=== PATIENT | female | born 1995 ===

== ENCOUNTER 2025-06-14 11:26 | Outpatient (AMB) | payer OTHER, SELFPAY ==
--- NOTE | 2025-06-14 11:22 | A.OFFPC_ITS ---
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, hand, shoulders and feet Accompanied by: Self / Same As Patient Allergies No Known Allergies (No Known Allergies*) Allergy (Verified 06/14/25 11:22) Medication List - Last Reconciled 06/14/25 by Fuad Fletcher MD [blood pressure kit As directed] Tobacco use date assessed: 06/14/25 Dental Screening Dental Screen Date: 06/14/25 Did you have a dental visit in the last 12 months?: No Did you have a dental problem in the last 6 months where you did not have access to dental care?: No Was dental information given to patient?: Patient has dentist HPI HPI Comments History of Present Illness Details History of Present Illness The patient is a 30 year old female presenting for establishment of primary care. Elevated Blood Pressure: The patient was found to have a slightly elevated blood pressure and pulse during the visit. She reports that her blood pressure is always high when checked and that this was first noted during her last four years ago. During that , she was prescribed aspirin. She does not own a blood pressure machine for home monitoring. History of Hypermobility: The patient reports a history of a bone-related issue as a child in [place], for which she was evaluated by a genetics specialist. She describes being able to bend her thumb completely backward. The patient does not know the official diagnosis from that time. Contraceptive Management: The patient was previously using an IUD, which she had removed in April. She discontinued it because she was not having her period and wanted to give her body a rest. She is not currently using any form of contraception but does not wish to become . Surgical History: - section (x2) Medications: - The patient is not currently taking an y medications. - She previously took aspirin during a p regnancy. Social History: - Substance Use: Denies smoking, alcohol use, and illicit drug use. - Family Planning: Currently not using c ontraception and does not desire . Family History: - Denies family history of cancer in par ents or siblings. Diagnostic Results: - Vitals: Blood pressure and pulse were noted to be slightly elevated. Past Medical History - History of elevated blood pressure, fi rst noted during 4 years ago. 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 - History of amenorrhea while using a co ntraceptive patch. - Hospitalizations: Admitted for two [facility] sections. Health Maintenance - The patient is establishing primary pr re. - Lab work was ordered for screening, in cluding CBC, metabolic panel, vitamin D, TSH, B12, folate, HIV, hepatitis B/C, syphilis, hemoglobin A1c, and a lipid panel. - Plan to screen for hypertension via tw o weeks of home blood pressure monitoring. [facility] Family History (Updated 06/14/25 @ 11:34 by David Plasencia MA) Mother No problems noted. Father No problems noted. Social History Housing: Condominium Patient Tobacco Use Status: Never used Tobacco service: No Current occupational status: employed Current occupation: SUPERVISOR [employer] Cognitive needs: No Hearing needs: No Vision needs: No Questionnaire PHQ-9 Over the last 2 weeks, how often have you been bothered by any of the following problems? 1. Little interest or pleasure in doing things: not at all 2. Feeling down, depressed, or hopeless: not at all 3. Trouble falling or staying asleep, or sleeping too much: not at all 4. Feeling tired or having little energy: not at all 5. Poor appetite or overeating: not at all 6. Feeling bad about yourself - or that you are a failure or have let yourself or your family down: not at all 7. Trouble concentrating on things, such as reading the newspaper or watching television: not at all 8. Moving or speaking so slowly that other people could have noticed. Or the opposite - being so fidgety or restless that you have been moving around a lot more than usual: not at all 9. Thoughts that you would be better off or of hurting yourself in some way: not at all Total score: 0 Depression Screening Interpretation: Negative Depression Screening Done: Yes Source: Developed by Drs. Vasyl Villanueva, Saranya B.WLiu Hardy and colleagues, with an educational cindy from [employer]. Thrive Questionnaire Date Thrive assessed: 06/14/25 I am a: Patient What is your living situation today?: I have a steady place to live Within the past 12 months, did the food you bought not last and you didn't have the money to get more?: Never true Within the past 12 months, did you worry whether your food would run out before you got money to buy more?: Never true Do you have trouble paying for medicines?: No Do you have trouble getting transportation to medical appointments?: No Do you have trouble paying your heating and electricity bill?: No Do you have trouble taking care of your child, family member or friend?: No Do you have trouble with day-to-day activities such as bathing, preparing meals, shopping, managing finances, etc.?: No Are you currently unemployed and looking for a job?: No Are you interested in more education?: No Please select the resources that you would like help with: None THRIVE Score: 0 AUDIT C Alcohol Use Questionnaire (AUDIT-C) 1. How often do you have a drink containing alcohol?: Never 3. How often do you have six or more drinks on one occasion?: Never Total Score: 0 PRABHA-7 AMB Questionnaire PRABHA-7 Date PRABHA - 7 assessed: 06/14/25 Feeling nervous, anxious, or on edge: 0 = Not at all Not being able to stop or control worryin = Not at all Worrying too much about different things: 0 = Not at all Trouble relaxin = Not at all Being so restless that it is hard to sit still: 0 = Not at all Becoming easily annoyed or irritable: 0 = Not at all Feeling afraid as if something awful might happen: 0 = Not at all Total PRABHA-7 score (0-4 normal; 5-9 mild; 10-14 moderate; 15-21 severe): 0 Source: Developed by Drs. Vasyl Villanueva, Liu Modi and colleagues, with an educational cindy from [employer]. Review of Systems Narrative Review of Systems - Constitutional: Reports sleeping well. - Cardiovascular: Reports awareness of high blood pressure and a fast pulse. - Gastrointestinal: Reports normal bowel function and denies abdominal pain. - Genitourinary: Reports normal urinary function. - Musculoskeletal: Reports a history of hypermobility in childhood. 10-point ROS reviewed and negative except as noted in HPI Physical exam (Primary Care) Vital Signs: Last Vital Signs Temp 98.1 F 06/14/25 11:29 Pulse 101 H 06/14/25 11:29 Resp 14 06/14/25 11:29 BP 133/93 H 06/14/25 11:29 Pulse Ox 96 06/14/25 11:29 Oxygen Delivery Method Room Air 06/14/25 11:29 BMI result Body Mass Index 40.3 Tobacco/Smoking Status: Tobacco use Status Tobacco use date assessed 06/14/25 06/14/25 11:23 Patient Tobacco Use Status Never used Tobacco 06/14/25 11:23 PHQ-9: PHQ-9 Score PHQ-9: Total score 0 06/14/25 11:38 Depression Screening Interpretation: Negative Thrive Assessment: Date of Thrive Assessment Date Thrive assessed 06/14/25 06/14/25 11:38 Narrative Physical Exam General: Well-appearing, in no acute distress. Vital signs: Blood pressure slightly elevated, pulse slightly high. HEENT: Normocephalic, atraumatic. PERRLA, EOMI. Conjunctiva clear, sclera anicteric. Oropharynx clear, mucous membranes moist. TMs intact bilaterally. Neck: Supple, no lymphadenopathy, no thyromegaly, no JVD or carotid bruits. Cardiovascular: RRR, normal S1/S2, no murmurs, rubs, or gallops. Peripheral pulses 2+ and symmetric. No edema. Respiratory: Lungs clear to auscultation bilaterally, no wheezes, rales, or rhonchi. Normal effort. Abdomen: Soft, non-tender, non-distended. Normoactive bowel sounds. No hepatosplenomegaly, no masses. MSK: Full range of motion, no joint swelling or deformity. Normal gait. Skin: Warm, dry, intact. No rashes, lesions, or pallor. Neuro: Alert and oriented x3. Cranial nerves II-XII intact. Strength 5/5 throughout. Sensation intact. Reflexes 2+ symmetric. Normal coordination and gait. Psych: Appropriate mood and affect. Normal judgment and insight. Coding Level of Care Code New Pt Level 4 (81214) Add On Problem Visit Only Diagnoses Elevated BP without diagnosis of hypertension R03.0 Tachycardia R00.0 Morbid obesity due to excess calories E66.01 Assessment & Plan Assessment & Plan (1) Elevated BP without diagnosis of hypertension: Code(s): R03.0 - Elevated blood-pressure reading, without diagnosis of hypertension Category: Medical (2) Tachycardia: Code(s): R00.0 - Tachycardia, unspecified Category: Medical (3) Morbid obesity due to excess calories: Code(s): E66.01 - Morbid (severe) obesity due to excess calories Category: Medical Plan Consent The patient provided verbal consent for lab work to be drawn today. Patient was informed and verbally consented to the use of an ambient scribe for clinic note documentation during this visit. Plan 1. Elevated Blood Pressure Reading Without Diagnosis Of Hypertension - Obtain a blood pressure machine for home monitoring. - The patient was instructed to check her blood pressure twice daily, morning an d night, for two weeks. - She will take three readings each time and record the best number. - Follow up in two weeks to review the home blood pressure log and determine if she has sustained hypertension that requires medication. 2. Health Maintenance / Establishment Of Care - Ordered comprehensive baseline labs: CBC, metabolic panel, vitamin D, TSH, B12, folate, HIV, hepatitis B/C, syphilis, hemoglobin A1c, and a lipid panel. - The patient was advised she can have her blood drawn today at the clinic. - Schedule follow-up in two weeks to discuss all results. 3. Contraceptive Management - Noted patient is not currently using contraception and does not wish to become . - No changes or new prescriptions for contraception were made at this visit. Discussion Notes I discussed my findings with the patient, particularly the elevated blood pressure reading. I explained that before diagnosing hypertension and starting medication, we need to confirm the readings are consistently high. Therefore, I have ordered a blood pressure machine and instructed her on how to perform home blood pressure monitoring for two weeks. I also informed her that I ordered comprehensive lab work to establish baseline health metrics and that she could have the blood drawn today. We will review all results at a follow-up visit in two weeks. Patient Instructions - Please get a blood pressure machine. - Check your blood pressure two times every day (in the morning and at night) for the next two weeks. - When you take your blood pressure, sit with your feet flat on the floor, relaxed, with your arm supported at the level of your heart. - Each time you check, take the measurement three times and write down the best number. - Please get the blood tests that were ordered for you today. - Please schedule a follow-up appointment in two weeks to review your blood pressure log and lab results. Medical Decision Making The patient is a 30-year-old female establishing primary care. The primary cl inical finding in this visit is an elevated blood pressure and pulse. Given her report of high readings during a prior , there is a concern for underlying essential hypertension. However, a diagnosis cannot be confirmed on a single office reading. The decision was made to have the patient conduct home blood pressure monitoring for two weeks to gather sufficient data to confirm or rule out a diagnosis of sustained hypertension. Comprehensive baseline labs were also ordered to screen for common chronic conditions and establish her health status as a new patient. A follow-up in two weeks is necessary to review the blood pressure log and lab results to determine the next steps in management, including potential initiation of antihypertensive therapy. Total Time Statement 30 min Total time spent caring for the patient today includes pre-visit chart review, documentation, review of laboratory and diagnostic imaging results, medication reconciliation, medically necessary evaluation, counseling on diagnoses, care coordination, ordering appropriate tests and medications, review of tests performed by other providers, reporting test results to the patient, and communication with other healthcare providers. Orders: Orders Hepatitis B Surface Antigen Today Z13.9 - Encounter for screening, unspecified Syphilis Screen Today Z13.9 - Encounter for screening, unspecified Lipid Panel Today Z13.9 - Encounter for screening, unspecified Vitamin B12 and Folate Today Z13.9 - Encounter for screening, unspecified Hemoglobin A1c Today Z13.9 - Encounter for screening, unspecified Vitamin D 25-OH (D2 and D3) Today Z13.9 - Encounter for screening, unspecified Complete Blood Count Auto Diff Today Z13.9 - Encounter for screening, unspecified Comprehensive Met. Panel Today Z13.9 - Encounter for screening, unspecified Hepatitis C Antibody Today Z13.9 - Encounter for screening, unspecified TSH reflex Free T4 Today Z13.9 - Encounter for screening, unspecified HIV Ab/Ag Today Z13.9 - Encounter for screening, unspecified UA CC w/rflx Micro + Cult Today Z13.9 - Encounter for screening, unspecified Magnesium Today Z13.9 - Encounter for screening, unspecified Hepatitis B Surface Antibody Today Z13.9 - Encounter for screening, unspecified Medications: New [blood pressure kit] As directed 1 ea 0RF I10 - Essential (primary) hypertension
[2025-06-14 11:29] VITALS: BP 133/93; PULSE 101; RESP 14; TEMP 36.7; O2SAT 96; BMI 40.3
--- OUTSIDE RECORDS SUMMARY | 2025-06-14 13:25 | XMS_ITS | Clinical Summary ---
Author Organization [facility] Address [address] [place] [address] Phone Care Team Providers Care Residential Assistant Name Role Phone Tram Estrada MD Primary Care Provider [phone] Allergies No known active allergies Medications levonorgestreL (Liletta) 20.4 mcg/24 hr (8 yrs) 52 mg intrauterine device IUD by intrauterine route. Active Active Problems Problem Noted Date Diagnosed Date Asthma 04/29/2025 Dehydration 04/29/2025 Shortness of breath 04/29/2025 Severe obesity (BMI >= 40) 08/28/2023 Encounters Date Type Department Care Team Description 04/29/2025 9:30 AM EST Procedure visit Obstetrics & Gynecology - [address] [id number] Shannan Palm CNM Encounter for IUD removal (Primary Dx) from Last 3 Months Immunizations Immunization Administration Dates Next Due Influenza Quadravalent, MDCK , 0.5ml, preservative free (Flucelvax) 6mo and older 03/13/2018 Influenza Quadrivalent, 0.5m l, preservative free (Fluarix; FluLaval; Fluzone) ages 6mo and older (Afluria) 3yo and older 04/19/2021 Influenza trivalent, with pr eservative (Fluzone; Afluria) 6mo and older 03/13/2018 Pfizer SARS-CoV-2 COVID-19, mRNA, LNP-S, preservative free 12/02/2020,10/27/2020 Tdap Tetanus diptheria acell ular pertussis (Boostrix; Adacel) 7yo and older 03/17/2021,09/09/2019,04/07/2018 Surgical History Surgery Date Site/Laterality Comments SECTION PROCEDURE: [place] DELIVERY ONLY; COMMENT: 2019 Medical History Medical History Date Comments Anemia in 01/2018 DX:Anemia in ; COMMENT: iron supplement rx Marijuana use DX:Marijuana use Lab test positive for detect ion of COVID-19 virus 10/23/2019 DX:Lab test positive for det ection of COVID-19 virus Obesity DX:Obesity Type A blood, Rh positive 02/2021 DX:Typ e A blood, Rh positive Family History Relation Name Status Comments Father Alive Mother Social History Tobacco Use Types Packs/Day Years Used Date Smoking Tobacco: Never Smokeless Tobacco: Never Alcohol Use Standard Drinks/Week Comments No 0 (1 standard drink = 0.6 oz pur e alcohol) Comments Unknown Sex and Gender Information Value Date Recorded Sex Assigned at Not on file Legal Sex Female 2:35 PM EST Gender Identity Not on file Sexual Orientation Not on file Obstetrics History Para Term AB IAB SAB Ectopic Multiple Livin g Live Births 3 3 1 2 3 3 Date Outcome GA Total Labor Labor/2nd/3rd Weight Sex Type Anes PTL Kira A1 A5 Name Clin 2018 Term 40w 1d 3204 g (113 oz) F Vag-S pont Epidur al,Loc al N Livin g Delivery Location:[facility] Comments:mild pre-e in labor, no meds or MGSO4 needed. 2019 34w 0d F CS-LT ranv Spinal N Livin g [facility] Complications:Severe acute r espiratory syndrome coronavirus 2 (SARS-CoV-2) detected [place] [place]:respiratory d istress r/t covid 19 2020 34w 0d 1860 g (65.6 oz) F CS-Un spec Spinal Y Livin g Complications:Placenta Previ a Delivery [place] Last Filed Vital Signs Vital Sign Reading Time Taken Comments Blood Pressure 113/82 04/29/2025 9:40 AM EST Pulse 83 04/29/2025 9:40 AM EST Temperature - - Respiratory Rate - - Oxygen Saturation - - Inhaled Oxygen Concentration - - Weight 104 kg (228 lb 4.8 oz) 04/29/2025 9:40 AM EST Height 157.5 cm (5' 2 ) 04/29/2025 9:40 AM EST Body Mass Index 41.76 04/29/2025 9:40 AM EST Plan of Treatment Health Maintenance Due Date Last Done Comments Hepatitis B Vaccines (1 of 3 - 19+ 3-dose series) 2013 Pneumococcal Vaccine: Pediatrics (0 to 5 Years) and At-Risk Patients (6 to 49 Years) (1 of 2 - PCV) 2013 HPV Vaccines (1 - 3-dose SCDM series) 2021 Cholesterol Screening (Lipid Panel) 05/16/2022 HIV Screening 05/16/2022 Hepatitis C Screening 05/16/2022 Social Influencers of Health Screening 05/16/2022 Depression Screening 06/17/2024 COVID-19 Vaccine ( - season) 2025 12/02/2020, 10/27/2020 Influenza Vaccine (#1) 2025 , 03/13/2018, 03/13/2018 Cervical Cancer Screening: Pap Smear 08/27/2026 08/28/2023, 02/17/2021, 11/18/2017, Additional history exists DTaP,Tdap,and Td Vaccines (4 - Td or Tdap) 03/17/2031 03/17/2021, 09/09/2019, 04/07/2018 RSV Immunization Adult Patients (1 - 1-dose 75+ series) 2069 HIB Vaccines Aged Out No longer eligi ble based on patient's age to complete this topic Hepatitis A Vaccines Aged Out No long er eligible based on patient's age to complete this topic IPV Vaccines Aged Out No longer eligi ble based on patient's age to complete this topic MMR Vaccines Aged Out No longer eligi ble based on patient's age to complete this topic Meningococcal ACWY Vaccine Aged Out N o longer eligible based on patient's age to complete this topic Meningococcal B Vaccine Aged Out No l onger eligible based on patient's age to complete this topic RSV Immunization Patients Under 20 months Aged Out No longer eligible based on patient's age to complete this topic Varicella Vaccines Aged Out No longer eligible based on patient's age to complete this topic Procedures Procedure Name Priority Date/Time Associated Diagnosis Comments WA REMOVAL INTRAUTERINE DEVICE Routine 04/29/2025 9:53 AM EST Encounter for IUD removal PAP SMEAR Routine 08/28/2023 from Last 3 Months or Most Recently Relevant to Health Maintenance Results * WA REMOVAL INTRAUTERINE DEVICE (04/29/2025 9:53 AM EST) Shannan Redman CNM - 04/29/2025 9:53 AM EST Shannan Palm CNM 04/29/2025 9:54 AM IUD Removal Date/Time: 04/29/2025 9:53 AM Performed by: Shannan Palm CNM Authorized by: Shannan Palm CNM Informed Consent: Site: Uterus Relevant images/test results available and reviewed: no Health status cleared: Yes Procedure/treatment, purpose, treatment alternatives, risks/potential complications and benefits explained: yes Patient questions answered: yes Patient agrees, verbalizes understanding, and wants to proceed: yes Consent given by: Patient Informed consent discussion completed by Physician/SIMONE with patient: Written; patient signed and dated; copy to patient Pre-procedure timeout performed: yes Removal Procedure: Strings visible: yes Removal device: Packing forceps Removal reason: Desires removal Removal successful: yes Complications: no Shannan Palm CNM IN CLINIC/BEDSIDE ORDERABLES Final Result * Pap smear (08/28/2023) 08/28/2023 Narrative HISTORICAL TESTING LAB RESULTING AGENCY - 09/04/2023 7:05 AM EDT [id number] THINPREP PAP, IMAGED: NEGATIVE FOR SQUAMOUS INTRAEPITHELIAL LESION AND MALIGNANCY . ATIF JOHNSON(ASCP) (CASE ELECTRONICALLY SIGNED 09 03 2023) ADEQUACY: SATISFACTORY ENDOCERVICAL/TRANSFORMATION ZONE COMPONENT PRESENT. SOURCE: THINPREP PAP HPV IF ASCUS, CERVICAL, IMAGED CLINICAL INFORMATION: HPV IF DIAGNOSIS OF ASCUS. HORMONES, PAP HX NEGATIVE 2020, [Z01.419] us Letitia Arenas CNM LAB CYTOLOGY ORDERABLES Final Result HISTORICAL TESTING LAB RESULTING AGENCY from Last 3 Months or Most Recently Relevant to Health Maintenance Insurance [facility] Care Teams Residential Assistant Relationship Specialty Start Date End Date Tram Estrada MD [address] [facility] [address] [place], [place] PCP - General Internal Medicine 10/29/17
== END 2025-06-14 11:56 | disposition home or self-care (01) ==
LOC: HO.HMCFMS 11:27
PROVIDERS: Visit Provider Student in an Organized Health Care Education/Training Program
DX: R03.0 Elevated blood-pressure reading, without diagnosis of hypertension (principal); R00.0 Tachycardia, unspecified; E66.01 Morbid (severe) obesity due to excess calories

== ENCOUNTER 2025-06-14 11:26 | Outpatient (REF) | payer OTHER, SELFPAY ==
[2025-06-14 14:03] LABS: MANUAL DIFF FLAG NO
[2025-06-14 14:08] LABS: Hematocrit 41.3 % (37.0-47.0); Hemoglobin 12.6 g/dl (12.0-16.0); Imm Gran Abs Auto 0.03 X10*3/uL (0.00-0.03); Imm Gran Pct Auto 0.4 % (0.0-0.4); Lymphocytes Absolute Auto 1.8 X10*3/uL (1.2-4.9); Mean Corpuscular HGB Conc 30.5 g/dl (31.0-35.0); Mean Corpuscular Hemoglobin 25.7 pg (27.0-33.0); Mean Corpuscular Volume 84.1 fL (80.0-98.0); NRBC Abs Auto 0.000 X10*3/uL (0.0-0.012); NRBC Pct Auto 0.0 /100WBC (0.0-0.2); Platelet Count 375 X10*3/uL (160-400); Red Blood Count 4.91 X10*6/uL (4.20-5.50); White Blood Count 7.7 X10*3/uL (4.8-10.8)
[2025-06-14 14:59] LABS: Alanine Aminotransferase 29 U/L (0-31); Albumin Level 4.2 g/dL (3.5-5.0); Alkaline Phosphatase 61 U/L (39-117); Anion Gap 9 (12-20); Aspartate Amino Transferase 28 U/L (5-31); Blood Urea Nitrogen 13 mg/dL (9-16); Calcium 9.2 mg/dL (8.4-10.2); Carbon Dioxide 26 mmol/L (22-29); Chloride 109 mmol/L (96-108); Cholesterol 133 mg/dL (<200); Estimated Glomerular Filt Rate > 60; HDL Cholesterol 58 mg/dL (>40); Magnesium 2.1 mg/dL (1.6-2.6); Potassium 4.0 mmol/L (3.3-5.1); Sodium 140 mmol/L (135-145); Total Protein 7.3 g/dL (6.5-8.0); Triglycerides 51 mg/dL (<150)
[2025-06-14 15:18] LABS: Folate 4.5 ng/mL (> or = 4.0); Vitamin B12 224 pg/mL (200-900)
[2025-06-15 07:42] LABS: Syphilis Screen Nonreactive (Nonreactive)
[2025-06-15 08:04] LABS: HBS Num1 1.12 mIU/mL (0-7.99); HBsAGNum1 0.32 S/CO (0.00-0.99); HIV Num 1 0.06 S/CO (0.00-0.99); Hepatitis B Surface Antigen Negative (Negative); ~HepC Num1 0.14 S/CO (0.00-0.79); ~Hepatitis B Surface Antibody NONREACTIVE (Nonreactive); ~Hepatitis C Antibody Nonreactive (Nonreactive)
[2025-06-18 08:14] LABS: Vitamin D 25-OH, D2 <4 ng/mL; Vitamin D 25-OH, D3 13 ng/mL; Vitamin D 25-OH, Total 13 ng/mL (30-100)
== END 2025-06-14 11:27 | disposition home or self-care (01) ==
LOC: HO.HKASLDS 11:26
PROVIDERS: PCP Student in an Organized Health Care Education/Training Program; Visit Provider Student in an Organized Health Care Education/Training Program
DX: Z13.9 Encounter for screening, unspecified (principal); R03.0 Elevated blood-pressure reading, without diagnosis of hypertension; R00.0 Tachycardia, unspecified; E66.01 Morbid (severe) obesity due to excess calories; Z68.41 Body mass index [BMI] 40.0-44.9, adult
CPT/HCPCS: 36415; 80053; 80061; 82306; 82607; 82746; 83036; 83735; 84443; 85025; 86706; 86780; 86803; 87340; 87389